=== PATIENT | male | born 1960 | race Caucasian/White ===

== ENCOUNTER 2016-11-10 06:07 | Outpatient (CLI) ==
[2016-11-10 06:18] LABS: BASOPHILS # (AUTO) 0.1 K/uL (0-0.2); BASOPHILS % (AUTO) 0.8 % (0.0-3.0); EOSINOPHILS # (AUTO) 0.5 K/ul (0.0-0.7); EOSINOPHILS % (AUTO) 4.5 % (0.0-7.0); HEMATOCRIT 42.4 % (42.0-52.0); HEMOGLOBIN 14.6 g/dl (14.0-18.0); IMMATURE GRANULOCYTE % (AUTO) 0.7 % (0.0-5.0); LYMPHOCYTES # (AUTO) 2.8 K/uL (0.60-3.4); LYMPHOCYTES % (AUTO) 26.3 (10.0-50.0); MEAN CORPUSCULAR HEMOGLOBIN 30.7 pg (27.0-31.0); MEAN CORPUSCULAR HGB CONC 34.4 (31.8-35.4); MEAN CORPUSCULAR VOLUME 89.3 fl (80.0-94.0); MONOCYTES # (AUTO) 1.1 K/uL (0.4-2.0); MONOCYTES % (AUTO) 10.3 (0-10); NEUTROPHILS % (AUTO) 57.4; PLATELET COUNT 251 10^3/uL (140-440); RED BLOOD COUNT 4.75 10^6/ul (4.70-6.10); WHITE BLOOD COUNT 10.47 K/ul (4.2-10.2)
[2016-11-10 06:39] LABS: ALBUMIN 4.2 g/dL (3.4-5.0); ALBUMIN/GLOBULIN RATIO 1.2; ANION GAP 13.1; BILIRUBIN,TOTAL 0.52 mg/dL (0.00-1.20); BUN/CREATININE RATIO 21.87; CHOL/HDL RATIO 5.7 (4.5-6.4); CREATININE 0.96 mg/dL (0.60-1.10); POTASSIUM 4.1 mmol/L (3.5-5.1); TOTAL PROTEIN 7.7 g/dL (6.4-8.2)
== END 2016-11-10 06:08 | disposition home or self-care (01) ==
LOC: LAB 06:07
PROVIDERS: ATTEND Nurse Practitioner Family
DX: E11.9 Type 2 diabetes mellitus without complications (principal); E78.5 Hyperlipidemia, unspecified; I10 Essential (primary) hypertension; E66.9 Obesity, unspecified; N18.9 Chronic kidney disease, unspecified
CPT/HCPCS: 36415; 80053; 80061; 83036; 85025

== ENCOUNTER 2017-01-11 07:46 | Outpatient (CLI) ==
[2017-01-11 08:59] VITALS: BMI 35.5
== END 2017-01-11 07:47 | disposition home or self-care (01) ==
LOC: DIETCN 07:46
PROVIDERS: ATTEND Nurse Practitioner Family
DX: E11.9 Type 2 diabetes mellitus without complications (principal)
CPT/HCPCS: 97802

== ENCOUNTER 2017-02-13 06:03 | Outpatient (CLI) | payer OTHER ==
[2017-02-13 06:12] LABS: BASOPHILS # (AUTO) 0.1 K/uL (0-0.2); BASOPHILS % (AUTO) 0.8 % (0.0-3.0); EOSINOPHILS # (AUTO) 0.4 K/ul (0.0-0.7); EOSINOPHILS % (AUTO) 4.5 % (0.0-7.0); HEMATOCRIT 39.7 % (42.0-52.0); HEMOGLOBIN 13.6 g/dl (14.0-18.0); IMMATURE GRANULOCYTE % (AUTO) 0.8 % (0.0-5.0); LYMPHOCYTES # (AUTO) 2.6 K/uL (0.60-3.4); LYMPHOCYTES % (AUTO) 29.6 (10.0-50.0); MEAN CORPUSCULAR HEMOGLOBIN 30.7 pg (27.0-31.0); MEAN CORPUSCULAR HGB CONC 34.3 (31.8-35.4); MEAN CORPUSCULAR VOLUME 89.6 fl (80.0-94.0); MONOCYTES # (AUTO) 0.7 K/uL (0.4-2.0); MONOCYTES % (AUTO) 8.2 (0-10); NEUTROPHILS # (AUTO) 4.8 K/ul (2.0-6.9); NEUTROPHILS % (AUTO) 56.1; PLATELET COUNT 204 10^3/uL (140-440); RED BLOOD COUNT 4.43 10^6/ul (4.70-6.10); WHITE BLOOD COUNT 8.62 K/ul (4.2-10.2)
[2017-02-13 06:51] LABS: ALBUMIN/GLOBULIN RATIO 1.14; BILIRUBIN,TOTAL 0.31 mg/dL (0.00-1.20); BUN/CREATININE RATIO 21.87; CALCIUM 9.5 mg/dL (8.2-10.2); CHOL/HDL RATIO 6.5 (4.5-6.4); CREATININE 0.96 mg/dL (0.60-1.10); TOTAL PROTEIN 7.5 g/dL (6.4-8.2)
== END 2017-02-13 06:04 | disposition home or self-care (01) ==
LOC: LAB 06:03
PROVIDERS: ATTEND Nurse Practitioner Family
DX: E11.9 Type 2 diabetes mellitus without complications (principal); E78.5 Hyperlipidemia, unspecified; I10 Essential (primary) hypertension; E66.9 Obesity, unspecified; Z12.5 Encounter for screening for malignant neoplasm of prostate
CPT/HCPCS: 36415; 80053; 80061; 83036; 84443; 85025

== ENCOUNTER 2017-05-22 06:04 | Outpatient (CLI) | payer OTHER ==
[2017-05-22 06:25] LABS: BASOPHILS # (AUTO) 0.1 K/uL (0-0.2); BASOPHILS % (AUTO) 0.9 % (0.0-3.0); EOSINOPHILS # (AUTO) 0.5 K/ul (0.0-0.7); EOSINOPHILS % (AUTO) 5.2 % (0.0-7.0); HEMATOCRIT 39.7 % (42.0-52.0); HEMOGLOBIN 13.8 g/dl (14.0-18.0); LYMPHOCYTES # (AUTO) 2.6 K/uL (0.60-3.4); LYMPHOCYTES % (AUTO) 29.5 (10.0-50.0); MEAN CORPUSCULAR HEMOGLOBIN 30.6 pg (27.0-31.0); MEAN CORPUSCULAR HGB CONC 34.8 (31.8-35.4); MONOCYTES % (AUTO) 11.4 (0-10); NEUTROPHILS # (AUTO) 4.5 K/ul (2.0-6.9); PLATELET COUNT 209 10^3/uL (140-440); RED BLOOD COUNT 4.51 10^6/ul (4.70-6.10); WHITE BLOOD COUNT 8.71 K/ul (4.2-10.2)
[2017-05-22 06:45] LABS: ALBUMIN/GLOBULIN RATIO 1.29; ANION GAP 13.5; BILIRUBIN,TOTAL 0.42 mg/dL (0.00-1.20); BUN/CREATININE RATIO 18.44; CALCIUM 10.1 mg/dL (8.2-10.2); CHOL/HDL RATIO 5.9 (4.5-6.4); CREATININE 1.03 mg/dL (0.60-1.10); POTASSIUM 4.5 mmol/L (3.5-5.1); TOTAL PROTEIN 7.1 g/dL (6.4-8.2)
== END 2017-05-22 06:05 | disposition home or self-care (01) ==
LOC: LAB 06:04
PROVIDERS: ATTEND Nurse Practitioner Family
DX: E11.9 Type 2 diabetes mellitus without complications (principal); E78.1 Pure hyperglyceridemia; E78.5 Hyperlipidemia, unspecified; I10 Essential (primary) hypertension
CPT/HCPCS: 36415; 80053; 80061; 83036; 85025

== ENCOUNTER 2017-10-31 06:05 | Outpatient (CLI) | payer OTHER | END 2017-10-31 06:06 | disposition home or self-care (01) | LOC: LAB 06:05 | PROVIDERS: ATTEND Nurse Practitioner Family | DX: E11.9 Type 2 diabetes mellitus without complications (principal); I10 Essential (primary) hypertension; E78.1 Pure hyperglyceridemia; E78.5 Hyperlipidemia, unspecified | CPT/HCPCS: 36415; 80053; 80061; 83036; 85025 ==

== ENCOUNTER 2018-02-27 06:37 | Outpatient (CLI) | END 2018-02-27 06:38 | disposition home or self-care (01) | LOC: LAB 06:37 | PROVIDERS: ATTEND Nurse Practitioner Family | DX: I10 Essential (primary) hypertension (principal); E11.9 Type 2 diabetes mellitus without complications; E78.5 Hyperlipidemia, unspecified; E78.1 Pure hyperglyceridemia | CPT/HCPCS: 36415; 80053; 80061; 83036; 84443; 85025 ==

== ENCOUNTER 2018-06-19 06:20 | Outpatient (CLI) | END 2018-06-19 06:21 | disposition home or self-care (01) | LOC: LAB 06:20 | PROVIDERS: ATTEND Nurse Practitioner Family | DX: E78.5 Hyperlipidemia, unspecified (principal); E11.9 Type 2 diabetes mellitus without complications; I10 Essential (primary) hypertension; E78.1 Pure hyperglyceridemia; R53.83 Other fatigue; Z12.5 Encounter for screening for malignant neoplasm of prostate | CPT/HCPCS: 36415; 80053; 80061; 82607; 83036; 85025 ==

== ENCOUNTER 2018-10-18 06:06 | Outpatient (CLI) | END 2018-10-18 06:07 | disposition home or self-care (01) | LOC: LAB 06:06 | PROVIDERS: ATTEND Nurse Practitioner Family | DX: E78.5 Hyperlipidemia, unspecified (principal); E78.1 Pure hyperglyceridemia; G47.00 Insomnia, unspecified; I10 Essential (primary) hypertension; E11.9 Type 2 diabetes mellitus without complications | CPT/HCPCS: 36415; 80053; 80061 ==

== ENCOUNTER 2019-01-11 10:55 | Emergency (ER) | payer OTHER ==
[2019-01-11 11:05] VITALS: BP 192/109; TEMP 97.4; BMI 33.5
--- NOTE | 2019-01-11 11:32 | ED.PDOC ---
General ED Provider: Dr. MICHAEL WILEY Chief Complaint: Syncope Stated Complaint: Weakness and "passing Out" States has "passed out" several times over 4-5 days. Last incident was last noc. Has been very imbalanced for past several days and must hold on to [place] as he has fallen several times. States his BS is not controlled and that he's out of his insulin. Has taken his BP meds but not controlling his BP. Has not experienced any nausea or vomiitng. Denies falling and striking his head. Time Seen by Physician: 11:15 Mode of Arrival: Wheelchair Information Source: Patient Exam Limitations: No limitations Primary Care Provider: YNES ESCOBAR Nursing and Triage Documentation Reviewed and Agree: Yes Does patient meet sepsis criteria?: No If yes, has appropriate treatment been initiated?: No System Inflammatory Response Syndrome: Not Applicable Sepsis Protocol: For patient's 13 years and over: Temp is 96.8 and below OR 101 and greater Pulse >90 BPM Resp >20/minute Acutely Altered Mental Status Are patient's symptoms suggestive of a new infection, such as: -Pneumonia -Skin, Soft Tissue -Endocarditis -UTI -Bone, Joint Infection -Implantable Device -Acute Abdominal Infection -Wound Infection -Meningitis -Blood Stream Catheter Infection -Unknown Neurological Complaint Exam - Syncope/Near Syncope Complaint/Exam Onset/Duration: 1 day Symptoms Are: Still present Episodes Lasting: Seconds Number of Episodes: unable to describe Frequency of Episodes: occasionally indepenent Episodes Witnessed: No Loss of Consciousness: No Associated Head Trauma: No Activity at Onset: At rest, With exertion Aggravating: Position change Alleviating: Reports: Position change Associated Signs and Symptoms: Reports: Lightheadedness, Dizziness. Denies: Pain, Decreased oral intake, Vomiting, Diarrhea, GI blood loss, Short of air, Chest pain, Palpitations, Diaphoresis, Weakness, AMS, Numbness, Headache, Seizure, Remote head trauma, Recent head trauma Cardiac Risk Factors: Reports: Hypertension, Diabetes, Elevated lipids GI Bleed Risk Factors: Reports: None Dysrhythmia Risk Factors: Reports: None Related Surgical History: Reports: None JVD Present: No Carotid Bruit Present: No Nystagmus Present: No Gag Reflex Present: Yes Meningeal Signs Positive: No Focal Weakness: Present: None Focal Sensory Loss: Present: None Gait: Normal [id number]: Normal Findings Romberg Test Positive: No Babinski Sign: Negative Right, Negative Left Heel to Toe Normal: Yes Differential Diagnoses: GI Bleed, Metabolic Reaction, Medication Reaction, Vasovagal Episode Quality Indicators for AMI: EKG in 10min. (+) Review of Systems - Review Of Systems Constitutional: Reports: No symptoms, Malaise Eyes: Reports: No symptoms. Denies: Blurred vision, Vision change Ears, Nose, Mouth, Throat: Reports: No symptoms Respiratory: Reports: No symptoms. Denies: Cough, Orthopnea, Short of air, Wheezing Cardiac: Reports: No symptoms, Lightheadedness GI: Reports: No symptoms : Reports: No symptoms Musculoskeletal: Reports: No symptoms Skin: Reports: No symptoms Neurological: Reports: No symptoms Endocrine: Reports: No symptoms Hematologic/Lymphatic: Reports: No symptoms All Other Systems: Reviewed and Negative Past Medical History - Past Medical History Endocrine: Reports: DM 2 Cardiovascular: Reports: Hypertension Respiratory: Reports: None Hematological: Reports: None Gastrointestinal: Reports: None Genitourinary: Reports: None Neuro/Psych: Reports: None Musculoskeletal: Reports: None Cancer: Reports: None - Surgical History General Surgical History: Reports: None - Family History Family History: Reports: Unknown - Social History Smoking Status: Never smoker Hx Substance Use: Yes (occasional marijuana) Alcohol Screening: None Physical Exam - Physical Exam Appearance: Ill-appearing, Obese Ill-appearing: Mild Pain Distress: None Eyes: CHIDI, EOMI, Conjunctiva clear ENT: Ears normal, Nose normal, Oropharynx normal Neck: Supple Respiratory: Airway patent, Breath sounds clear, Breath sounds equal, Respirations nonlabored Cardiovascular: RRR, Pulses normal, No rub, No murmur GI/: Soft, Nontender, No masses, Bowel sounds normal, No Organomegaly Musculoskeletal: Normal strength, ROM intact, No edema, No calf tenderness Skin: Warm, Dry, Normal color Neurological: Sensation intact, Motor intact, Reflexes intact, Cranial nerves intact, Alert, Oriented Psychiatric: Affect appropriate, Mood appropriate Critical Care Note - Critical Care Note Total Time (mins): 60 Course - Course Hematology/Chemistry: 01/11/19 11:44 01/11/19 11:44 Orders, Labs, Meds: Lab Review 01/11/19 01/11/19 01/11/19 11:44 11:44 11:44 WBC 9.40 RBC 4.24 L Hgb 12.7 L Hct 37.1 L MCV 87.5 MCH 30.0 MCHC 34.2 RDW Coeff of Moose 11.9 Plt Count 230 Immature Gran % (Auto) 0.6 Neut % (Auto) 62.6 Lymph % (Auto) 24.6 Wilson % (Auto) 6.8 Eos % (Auto) 4.7 Baso % (Auto) 0.7 Immature Gran # (Auto) 0.1 Neut # (Auto) 5.9 Lymph # (Auto) 2.3 Wilson # (Auto) 0.6 Eos # (Auto) 0.4 Baso # (Auto) 0.1 D-Dimer (Manual) 509.72 Sodium 138.9 Potassium 4.00 Chloride 104.8 Carbon Dioxide 22.0 Anion Gap 16.10 BUN 15.3 Creatinine 0.71 Estimated GFR (MDRD) 114.00 BUN/Creatinine Ratio 21.54 Glucose 239.8 H Hemoglobin A1c Uric Acid 5.31 Calcium 9.52 Magnesium 1.46 L Total Bilirubin 0.70 AST 44.2 ALT 32.5 Alkaline Phosphatase 60.8 Troponin I < 0.012 Total Protein 7.20 Albumin 4.81 Globulin 2.39 Albumin/Globulin Ratio 2.01 01/11/19 11:44 WBC RBC Hgb Hct MCV MCH MCHC RDW Coeff of Moose Plt Count Immature Gran % (Auto) Neut % (Auto) Lymph % (Auto) Wilson % (Auto) Eos % (Auto) Baso % (Auto) Immature Gran # (Auto) Neut # (Auto) Lymph # (Auto) Wilson # (Auto) Eos # (Auto) Baso # (Auto) D-Dimer (Manual) Sodium Potassium Chloride Carbon Dioxide Anion Gap BUN Creatinine Estimated GFR (MDRD) BUN/Creatinine Ratio Glucose Hemoglobin A1c 10.55 H Uric Acid Calcium Magnesium Total Bilirubin AST ALT Alkaline Phosphatase Troponin I Total Protein Albumin Globulin Albumin/Globulin Ratio Orders Category Date Time Status EKG-(ED ONLY) Stat CARDIO 01/11/19 11:32 Completed IV [ED IV/MEDIPORT/POWERPORT] .ONCE EMERGENCY 01/11/19 11:32 Active CBC W/ AUTO DIFF Stat LAB 01/11/19 11:44 Completed CMP [COMPREHENSIVE METABOLIC PANEL] Stat LAB 01/11/19 11:44 Completed D-DIMER Stat LAB 01/11/19 11:44 Completed HEMOGLOBIN A1C Stat LAB 01/11/19 11:44 Completed MAGNESIUM Stat LAB 01/11/19 11:44 Completed TROPONIN I Stat LAB 01/11/19 11:44 Completed UA [URINALYSIS C & S IF INDICATED] Stat LAB 01/11/19 12:43 Ordered URIC ACID Stat LAB 01/11/19 11:44 Completed URINE DRUG SCREEN (RAPID FOR ED) [DRUG SCREEN, URINE, LAB 01/11/19 12:43 Ordered RAPID] Stat 0.9 % Sodium Chloride [Saline Flush] MEDS 01/11/19 11:32 Active 1 syr IVF PRN PRN Clonidine HCl [Catapres] MEDS 01/11/19 12:25 Discontinued 0.1 mg PO ONCE STA CHEST, 1V AP ONLY Stat RADS 01/11/19 12:[address] HEAD W/O CONTRAST Stat RADS 01/11/19 12:04 Ordered Medications Generic Name Dose Route Start Last Admin Trade Name Freq PRN Reason Stop Dose Admin Sodium Chloride 1 syr 01/11/19 11:32 Saline Flush IVF PRN PRN To flush IV Discontinued Medications Generic Name Dose Route Start Last Admin Trade Name Freq PRN Reason Stop Dose Admin Clonidine 0.1 mg 01/11/19 12:25 01/11/19 12:32 Catapres PO 01/11/19 12:26 0.1 mg ONCE STA Administration Vital Signs: Temp Pulse Resp BP Pulse Ox 01/11/19 10:56 97.4 F L 71 20 192/109 H 99 Departure - Departure Time of Disposition: 13:05 Disposition: TSF SHORT-TRM HOSP Discharge Problem: Ac ischemic VBA cerebellar stroke Instructions: Dizziness (ED) Condition: Good Pt referred to PMD for follow-up: Yes ([facility]) [facility] verified?: No Allergies/Adverse Reactions: Allergies buspirone HCl [From BuSpar] Allergy (Intermediate, Verified 01/11/19 11:05) increase heart rate sitagliptin phosphate [From Januvia] Allergy (Intermediate, Verified 01/11/19 11 :05) rash ezetimibe [From Zetia] Allergy (Mild, Verified 01/11/19 11:05) funny feeling lisinopril Allergy (Mild, Verified 01/11/19 11:05) funny feeling Additional Information: [address] and advise CT head abnormal Has 3 cm density rt mid cerebellum suspicious for poss evolving infarct Advise nurse to contact [facility] to initiate transfer proces Explained to patient Spoke to Dr Jo, recommends transfer to [facility] ER for additional EVAL /MRI Scan Brain to confirm or r/o cerebellar ischemia
[2019-01-11] MEDS ORDERED: CATAPRES PO STA (12:25)
--- NOTE | 2019-01-11 12:54 | CT ---
EXAM: CT Head HISTORY: Near-syncope COMPARISON: None TECHNIQUE: CT head performed without contrast FINDINGS: There is no mass effect, midline shift, or intracranial hemmorhage. Subtle hypodensity in the right cerebellum around axial image 12. There is no extra-axial collection. The ventricles, winston lci, and basal cisterns are patent and symmetric. Mild chronic ischemic disease of the white matter. There is no depressed calvarial fracture. The mastoid air cells are clear. The visualized paranasa l sinuses are clear. Well marginated ovoid scalp mass right parietal region with internal calcificati ons measures 3.1 x 1.7 x 2.9 cm. Intracranial atherosclerotic vascular calcifications. IMPRESSION: 1. Hypodensity right cerebellum, suspicious for an area of age indeterminate ischemia. Recommend co rrelation with MRI. 2. Mild chronic ischemic disease of the white matter. 3. Calcified scalp mass right parietal region measures 3.1 cm. This is indeterminate, with benign f eatures favored. Recommend clinical correlation and follow-up. Findings # [address] Zayas #1 called to 12:48 p.m. 01/11/2019
--- NOTE | 2019-01-11 13:58 | DI ---
EXAM: Chest one view HISTORY: Dizziness and near syncope COMPARISON: 04/12/2012 TECHNIQUE: Single view of the chest was performed FINDINGS: The lungs are clear. There is no pleural effusion or pneumothorax. The heart is enlarged in size. The mediastinal contour is normal. There are no acute abnormalities of the bones. IMPRESSION: Cardiomegaly.No acute cardiopulmonary process.
== END 2019-01-11 13:51 | disposition short-term general hospital (02) ==
LOC: ED 10:55
DX: R55 Syncope and collapse (principal); R53.1 Weakness; R42 Dizziness and giddiness; I10 Essential (primary) hypertension; E11.9 Type 2 diabetes mellitus without complications; I67.82 Cerebral ischemia
CPT/HCPCS: 36415; 80053; 80306; 81001; 83036; 83735; 84484; 84550; 85025; 85379; 93005; 93010; 99285

== ENCOUNTER 2019-01-11 13:52 | Outpatient (CLI) ==
[2019-01-11 11:05] VITALS: BMI 33.5
== END 2019-01-11 14:14 | disposition short-term general hospital (02) ==
LOC: AMBL 13:52
PROVIDERS: ATTEND Emergency Medicine
DX: R42 Dizziness and giddiness (principal); R55 Syncope and collapse; R11.2 Nausea with vomiting, unspecified; R19.7 Diarrhea, unspecified; R41.0 Disorientation, unspecified